=== PATIENT | female | born 1980 | race Caucasian/White ===

== ENCOUNTER → 2016-06-26 | Emergency (ER) | payer OTHER ==
[~2016-06-26] MED LIST: ACETAMINOPHEN 1000 MG/100 ML VIAL (NON FORMULARY) IVPB ONE; ACETAMINOPHEN INJECTION 100 ML IVPB ONE; OSELTAMIVIR PHOSPHATE 75 MG CAPSULE ONE; OSELTAMIVIR PHOSPHATE 75 MG CAPSULE PO ONE; SODIUM CHLORIDE 1,000 ML IV STA
--- NOTE | 2016-06-26 08:48 | PDOC ---
History of Present Illness - General Chief Complaint: Cold Symptoms Stated Complaint: FLU Time Seen by Provider: 06/26/16 08:47 History Source: Patient Exam Limitations: No Limitations - History of Present Illness Initial Comments: 35 yo F currently 8 months with twin gestation presents with cough, congestion, fever since last night. She states that her tmax was 104 at home. She has not felt any movements in the past 2 hours. Denies nausea, vomiting, abdominal pain. No vaginal bleeding. Past History - Past Medical History Allergies/Adverse Reactions: Allergies Allergy/AdvReac Type Severity Reaction Status Date / Time No Known Allergies Allergy Verified 06/26/16 08:48 Home Medications: Ambulatory Orders Acetaminophen [Tylenol] 325 mg PO PRN PRN 06/26/16 Pnv95/Ferrous Fumarate/FA [ Caplet] 1 each PO DAILY 06/26/16 - Immunization History Td Vaccination: No - Psycho/Social/Smoking Cessation Hx Anxiety: No Suicidal Ideation: No Smoking Status: No Smoking History: Never smoked Years of Tobacco Use: 0 Number of Cigarettes Smoked Daily: 0 Review of Systems - Review of Systems Able to Perform ROS?: Yes Comments:: GENERAL/CONSTITUTIONAL: +Fever/chills. No weakness. HEAD, EYES, EARS, NOSE AND THROAT: No change in vision. No ear pain or discharge. No sore throat. CARDIOVASCULAR: No chest pain or shortness of breath. RESPIRATORY: +Cough. No wheezing or hemoptysis. GASTROINTESTINAL: No nausea, vomiting, diarrhea or constipation. GENITOURINARY: No dysuria, frequency, or change in urination. MUSCULOSKELETAL: No joint or muscle swelling or pain. No neck or back pain. SKIN: No rash NEUROLOGIC: No headache, vertigo, loss of consciousness, or change in strength/ sensation. ENDOCRINE: No increased thirst. No abnormal weight change. HEMATOLOGIC/LYMPHATIC: No anemia, easy bleeding, or history of blood clots. ALLERGIC/IMMUNOLOGIC: No hives or skin allergy. *Physical Exam - Physical Exam Comments: GENERAL: Awake, alert, and fully oriented, in no acute distress HEAD: No signs of trauma EYES: PERRLA, EOMI, sclera anicteric, conjunctiva clear ENT: Auricles normal inspection, hearing grossly normal, nares patent, oropharynx clear without exudates. Moist mucosa NECK: Normal ROM, supple, no lymphadenopathy, JVD, or masses LUNGS: Breath sounds equal, clear to auscultation bilaterally. No wheezes, and no crackles HEART: Tachycardic with regular rhythm, normal S1 and S2, no murmurs, rubs or gallops ABDOMEN: Soft, nontender, normoactive bowel sounds. No guarding, no rebound. + Gravid uterus c/w dates. EXTREMITIES: Normal range of motion, no edema. No clubbing or cyanosis. No cords, erythema, or tenderness NEUROLOGICAL: Cranial nerves II through XII grossly intact. Normal speech, normal gait SKIN: Warm, Dry, normal turgor, no rashes or lesions noted. ED Treatment Course - LABORATORY CBC & Chemistry Diagram: 06/26/16 08:51 06/26/16 09:09 Medical Decision Making - Medical Decision Making 06/26/16 12:35 Labs wnl, flu negative. Sono reading pending. Will transfer for L&D monitoring. 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 Will call for transfer. 06/26/16 12:53 D/w Dr. Mayes at [facility]. He has accepted patient to L&D. We discussed ultrasound findings as well as patient presentation. I will give tamiflu for suspected flu. *DC/Admit/Observation/Transfer Diagnosis at time of Disposition: Fever Qualifiers: Fever type: unspecified Qualified Code(s): R50.9 - Fever, unspecified - Discharge Dispostion Disposition: TRANSFER ACUTE CARE/OTHER HOSP Condition at time of disposition: Stable Admit: No - Transfer to Acute Care Facility Receiving Facility: [facility]. Accepting Physician:: Dr. Myaes
[2016-06-26 08:53] VITALS: BMI 36.3
[2016-06-26 09:48] LABS: ALBUMIN 2.5 g/dl (3.5-5.0); ALK PHOS 165 U/L (32-92); ANION GAP 7 (8-16); BILIRUBIN,TOTAL 0.2 mg/dl (0.2-1.0); CALCIUM 8.6 mg/dl (8.4-10.2); CO2 20 mmol/L (22-28); CREATININE 0.7 mg/dl (0.6-1.3); GLUCOSE,RANDOM 106 mg/dl (74-106); SGOT/AST 21 U/L (10-42); SGPT/ALT 10 U/L (10-40); TOT PROT 5.6 g/dl (6.4-8.3)
[2016-06-26 10:03] LABS: URINE APPEARANCE Clear; URINE BILIRUBIN Negative (NEGATIVE); URINE GLUCOSE (UA) Negative (NEGATIVE); URINE KETONE Negative (NEGATIVE); URINE LEUK ESTERASE Negative (NEGATIVE); URINE NITRITE Negative (NEGATIVE); URINE UROBILINOGEN 0.2 E.U/dl (0.2-1.0)
[2016-06-26 10:04] LABS: URINE BLOOD 2+ (NEGATIVE); URINE COLOR YELLOW; URINE PROTEIN 3+ (NEGATIVE)
[2016-06-26 10:19] LABS: URINE WBC 0-3 (3-5)
[2016-06-26 10:22] LABS: URINE BACTERIA MODERATE /hpf (NEGATIVE)
[2016-06-26 10:24] LABS: URINE HYALINE CAST 0-3 /lpf
[2016-06-26 10:42] LABS: BASOPHIL 0.4 % (0-2.0); EOSINOPHIL 0.4 % (0-4.5); MCH 29.5 pg (25.7-33.7); MCHC 33.9 g/dl (32.0-36.0); MEAN CELL VOLUME 87.1 fl (80-96); MEAN PLT VOLUME 11.5 fl (7.5-11.1); NEUTROPHILS 77.7 % (42.8-82.8); PLATELET COUNT 150 K/MM3 (134-434); RDW 13.5 % (11.6-15.6); WHITE BLOOD COUNT 8.8 K/mm3 (4.0-10.0)
[2016-06-26 13:17] VITALS: BP 140/87; PULSE 107; TEMP 99
== END | disposition short-term general hospital (02) ==
LOC: FER 08:46
PROC: 3E033NZ Introduction of Analgesics, Hypnotics, Sedatives into Peripheral Vein, Percutaneous Approach (ICD-10-PCS; principal; 2016-06-26)
PROC: 3E0337Z Introduction of Electrolytic and Water Balance Substance into Peripheral Vein, Percutaneous Approach (ICD-10-PCS; 2016-06-26)
DX: O30.003 Twin pregnancy, unspecified number of placenta and unspecified number of amniotic sacs, third trimester (principal); R50.9 Fever, unspecified; Z3A.32 32 weeks gestation of pregnancy
CPT/HCPCS: 36415; 76810-TC; 80053; 81003; 81015; 85025; 87804; 96361; 96374; 99282-25

== ENCOUNTER 2021-09-22 20:36 | Emergency (ER) | payer OTHER ==
[2021-09-22 20:44] VITALS: BP 141/78; PULSE 102; TEMP 98.3; BMI 36.7
[2021-09-22] MEDS ORDERED: KETOROLAC TROMETHAMINE 30 MG/1 ML VIAL IVPUSH ONE (20:59)
[2021-09-22] MEDS ORDERED: KETOROLAC TROMETHAMINE 30 MG/1 ML VIAL ONE (21:02)
[2021-09-22 21:27] LABS: HEMATOCRIT 36.3 % (32.4-45.2); HEMOGLOBIN 12.8 G/dL (10.7-15.3); MCH 31.5 pg (25.7-33.7); MCHC 35.3 g/dl (32.0-36.0); MEAN CELL VOLUME 89.3 fl (80-96); MEAN PLT VOLUME 8.4 fl (7.5-11.1); PLATELET COUNT 263.6 10^3/uL (134-434); RBC 4.07 10^6/uL (3.60-5.2); RDW 13.4 % (11.6-15.6); WHITE BLOOD COUNT 12.4 10^3/uL (4.0-10.8)
[2021-09-22 21:44] LABS: ALBUMIN 3.3 g/dl (3.4-5.0); BILIRUBIN,TOTAL 0.4 mg/dl (0.2-1); CALCIUM 8.5 mg/dl (8.5-10); CREATININE 0.8 mg/dl (0.55-1.3); TOT PROT 6.5 g/dl (6.4-8.2)
[2021-09-22] MEDS ORDERED: AZITHROMYCIN 500 MG TABLET PO ONE (21:50)
[2021-09-22] MEDS ORDERED: AZITHROMYCIN 250 MG TABLET ONE (21:52)
== END 2021-09-22 22:16 | disposition home or self-care (01) ==
LOC: FER 20:36
PROC: 3E0333Z Introduction of Anti-inflammatory into Peripheral Vein, Percutaneous Approach (ICD-10-PCS; principal; 2021-09-22)
DX: J18.9 Pneumonia, unspecified organism (principal)
CPT/HCPCS: 0241U-QW; 36415; 71045-TC-FY; 80053; 82550; 84484; 85025; 93005; 96374; 99285-25

== ENCOUNTER 2024-01-08 20:20 | Emergency (ER) | payer OTHER ==
[2024-01-08 20:36] VITALS: BP 130/84; PULSE 66; RESP 16; TEMP 98.4; BMI 37.8
[2024-01-08] MEDS ORDERED: KETOROLAC TROMETHAMINE 60 MG/2 ML VIAL ONE (21:54)
[2024-01-08] MEDS ORDERED: predniSONE 20 MG TABLET (UD) ONE (21:54)
[2024-01-08] MEDS: predniSONE 20 MG TABLET (UD) PO ONE (21:57)
[2024-01-08] MEDS: KETOROLAC TROMETHAMINE 60 MG/2 ML VIAL IM ONE (21:57)
== END 2024-01-08 22:49 | disposition home or self-care (01) ==
LOC: FER 20:20
PROC: 3E0133Z Introduction of Anti-inflammatory into Subcutaneous Tissue, Percutaneous Approach (ICD-10-PCS; principal; 2024-01-08)
DX: M54.42 Lumbago with sciatica, left side (principal); M54.41 Lumbago with sciatica, right side
CPT/HCPCS: 72100-TC-FY; 99284-25

== ENCOUNTER 2024-03-26 21:36 | Emergency (ER) | payer OTHER ==
[2024-03-26 21:44] VITALS: RESP 16; BMI 37.8
[2024-03-26] MEDS ORDERED: ACETAMINOPHEN 500 MG TABLET (FP) ONE (22:12)
[2024-03-26] MEDS ORDERED: DEXAMETHASONE 4 MG TABLET (FP) ONE (22:12)
[2024-03-26] MEDS: DEXAMETHASONE 4 MG TABLET (FP) PO ONE (22:14)
[2024-03-26] MEDS: ACETAMINOPHEN 500 MG TABLET (FP) PO ONE (22:15)
[2024-03-26 22:20] VITALS: BP 139/80; PULSE 70; TEMP 98.7
== END 2024-03-26 23:10 | disposition home or self-care (01) ==
LOC: FER 21:36
DX: J02.9 Acute pharyngitis, unspecified (principal); Z20.822 Contact with and (suspected) exposure to COVID-19
CPT/HCPCS: 0241U-QW; 87651; 99283-25

== ENCOUNTER 2024-06-03 20:49 | Emergency (ER) | payer OTHER ==
[2024-06-03] MEDS ORDERED: LIDOCAINE 5% TOPICAL PATCH ONE (21:02)
[2024-06-03] MEDS ORDERED: METHOCARBAMOL 500 MG TABLET ONE (21:02)
[2024-06-03] MEDS: METHOCARBAMOL 500 MG TABLET PO ONE (21:16)
[2024-06-03] MEDS: LIDOCAINE 5% TOPICAL PATCH TP ONE (21:16)
[2024-06-03 21:22] VITALS: BMI 37.8
[2024-06-03] MEDS: LIDOCAINE PATCH REMOVAL MC SCH (21:33)
[2024-06-03] MEDS ORDERED: IBUPROFEN 600 MG TABLET (FP) PO ONE (22:15)
[2024-06-03] MEDS ORDERED: ACETAMINOPHEN 500 MG TABLET (FP) ONE (22:15)
[2024-06-03] MEDS: IBUPROFEN 600 MG TABLET (FP) PO ONE (22:16)
[2024-06-03] MEDS: ACETAMINOPHEN 500 MG TABLET (FP) PO ONE (22:16)
[2024-06-03] MEDS ORDERED: PENICILLIN G BENZATHINE 1,200,000 UNIT/2 ML PFS IM ONE (22:18)
[2024-06-03] MEDS: PENICILLIN G BENZATHINE 1,200,000 UNIT/2 ML PFS IM ONE (22:35)
[2024-06-03] MEDS: SODIUM CHLORIDE 0.9% 500 ML INFUS.BAG IV ONE (22:36)
[2024-06-03 23:01] LABS: INR 1.27 (0.83-1.09); PROTHROMBIN TIME (PATIENT) 14.4 SEC (9.7-13.0)
[2024-06-03 23:03] LABS: ACTIVATED PTT 39.5 SECONDS (25.2-36.5)
[2024-06-03 23:05] LABS: HEMATOCRIT 40.8 % (32.4-45.2); HEMOGLOBIN 13.5 G/dL (10.7-15.3); MCH 29.9 pg (25.7-33.7); MCHC 33.2 g/dl (32.0-36.0); MEAN PLT VOLUME 9.2 fl (7.5-11.1); PLATELET COUNT 234.5 10^3/uL (134-434); RBC 4.53 10^6/uL (3.60-5.2); RDW 13.2 % (11.6-15.6); WHITE BLOOD COUNT 9.7 10^3/uL (4.0-10.8)
[2024-06-03] MEDS: AMOXICILLIN 500 MG CAPSULE (FP) PO ONE (23:08)
[2024-06-03 23:15] LABS: ALBUMIN 4.3 g/dl (3.4-5.0); ALK PHOS 157 U/L (45-117); ANION GAP 6 mmol/L (4-13); BILIRUBIN,TOTAL 0.5 mg/dl (0.2-1); CALCIUM 9.2 mg/dl (8.5-10.1); CHLORIDE 102 mmol/L (98-107); CO2 27 mmol/L (21-32); CREATININE 0.9 mg/dl (0.6-1.3); GLUCOSE,RANDOM 117 mg/dl (74-106); POTASSIUM 3.8 mmol/L (3.5-5.1); SGOT/AST 32 U/L (15-37); SGPT/ALT 42 U/L (7-52); SODIUM 135 mmol/L (136-145); TOT PROT 7.3 g/dl (6.4-8.2)
[2024-06-03 23:43] LABS: VENOUS BASE EXCESS 1.2 mmol/L (-2-2); VENOUS O2 SATURATION 93.6 % (70-80); VENOUS PCO2 33.6 mmHg (38-52); VENOUS PH 7.479 (7.310-7.410)
[2024-06-03 23:45] LABS: EPITHELIAL CELLS 0-5 /hpf
[2024-06-03 23:47] LABS: PLATELET ESTIMATE ADEQUATE
[2024-06-04 00:07] VITALS: BP 114/74; PULSE 103; RESP 16; TEMP 99.1
== END 2024-06-04 00:25 | disposition home or self-care (01) ==
LOC: FER 20:49
DX: J10.1 Influenza due to other identified influenza virus with other respiratory manifestations (principal); J02.0 Streptococcal pharyngitis; R50.9 Fever, unspecified; R51.9 Headache, unspecified; M79.18 Myalgia, other site; M54.9 Dorsalgia, unspecified; Z20.822 Contact with and (suspected) exposure to COVID-19
CPT/HCPCS: 0241U-QW; 36415; 71046-TC-FY; 80053; 81003; 81015; 82550; 82803; 83605; 84484; 85027; 85610; 85730; 87040; 87086; 87651; 93005; 99285-25